=== PATIENT | female | born 1940 | race Caucasian/White ===

== ENCOUNTER → 2016-04-23 | Outpatient (CLI) | payer MEDICARE ==
[~2016-04-23] MED LIST: ALENDRONATE SOD70 MG PO; ATORVASTATIN CA10 MG PO; AZOR 10/40 MG T1 TAB PO; AZOR 5-20 MG T1 EACH PO; CALCIUM 500 + D1 TAB PO; DILANTIN PO; FOSAMAX PO; HCTZ PO; HYDROCHLOROTH12.5 MG PO; KEPPRA500 M1 PO; KEPPRA500 M2 PO; KEPPRA500 MG PO; PROTONIX PO; VITAMIN D250000 UNIT PO
--- NOTE | ~2016-04-23 | MR122 ---
[facility]. [facility] A Service of [facility] RADIOLOGY TEXT RESULTS PATIENT: ANKUSH RODRIGUEZ LOCATION: [facility] : 38 UNIT #: [id number] AGE: [address]: Gabriel Woodall II, MD SEX: F ORDER DR: [id number] [place] [id number] O MR#: [id number] Acc #: [id number] NAME: ANKUSH RODRIGUEZ : 1940 SEX: F STUDY DATE/TIME: 04/23/2016 10:48 UNIT: [facility] ROOM: STUDY DESCRIPTION: MR MRA Head Wo Contrast Attending Physician: Gabriel Woodall II., M.D. Referring Physician: Gabriel Woodall II., M.D. Ordering Physician: Gabriel Woodall II., M.D. Primary Care Physician: José Noriega Jr., M.D. MRI CENTER REPORT This report is preliminary unless electronic signature is present. EXAM MR angiogram of the head without contrast dated 04/23/2016. COMPARISON MRI brain and MRA neck dated 04/23/2016. HISTORY Increased dizziness and unsteady gait followed for less than 3 months. History of seizure activity in the past without any seizure in the last 4 years. FINDINGS Source and 3-D reconstruction MIP images of the [place] was obtained without contrast. Bilateral intracranial internal carotid arteries, anterior cerebral arteries and middle cerebral arteries are within normal limits. Basilar artery, bilateral posterior cerebral arteries, proximal bilateral superior cerebellar arteries are within normal limits. Left vertebral artery is dominant and it feeds the basilar artery. The right vertebral artery significantly decreases in caliber after it enters intradurally. If it has a smooth decrease in caliber throughout its V4 segment. IMPRESSION 1. No aneurysm or AVM. 2. 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 It a congenital appearance. Superimposed stenosis is less likely but it cannot be completely excluded given the patient's age. Dictated by... Priti Castro M.D. [facility] A Service of [facility] RADIOLOGY TEXT RESULTS PATIENT: ANKUSH RODRIGUEZ LOCATION: [facility] : 39 UNIT #: [id number] AGE: [address]: Gabriel Woodall II, MD SEX: F ORDER DR: THIS IS AN ELECTRONICALLY VERIFIED REPORT Priti Castro M.D. at 04/26/2016 5:16 PM CPR/rnr TD: 04/24/2016 02:44 JOB #: [id number] MRI CENTER REPORT
--- NOTE | ~2016-04-23 | MR134 ---
[facility] A Service of [facility] RADIOLOGY TEXT RESULTS PATIENT: ANKUSH RODRIGUEZ LOCATION: [facility] : 39 UNIT #: [id number] AGE: [address]: Gabriel Woodall II, MD SEX: F ORDER DR: [id number] [place] [id number] O MR#: [id number] Acc #: [id number] NAME: ANKUSH RODRIGUEZ : 1940 SEX: F STUDY DATE/TIME: 04/23/2016 10:27 UNIT: [facility] ROOM: STUDY DESCRIPTION: MR MRA Neck Wo Contrast Attending Physician: Gabriel Woodall II., M.D. Referring Physician: Gabriel Woodall II., M.D. Ordering Physician: Gabriel Woodall II., M.D. Primary Care Physician: José Noriega Jr., M.D. MRI CENTER REPORT This report is preliminary unless electronic signature is present. EXAM MRA neck without contrast dated 04/23/2016 COMPARISON MRI brain MRA head dated 04/23/2016. HISTORY Increased dizziness and unsteadiness on feet for less than 3 months. FINDINGS Source and 3-D reconstruction MIP images of the neck arteries were obtained without contrast. Three-vessel aortic arch is seen. Bilateral common, internal and external carotid arteries do not demonstrate any significant abnormality. Left vertebral artery is dominant. Bilateral vertebral arteries demonstrate expected course, caliber and flow. No focal significant stenosis, aneurysm or AVM. IMPRESSION 1. No hemodynamically flow-limiting significant stenosis in bilateral internal carotid arteries per NASCET criteria. 2. No dissection or aneurysm. Dictated by... Priti Castro M.D. THIS IS AN ELECTRONICALLY VERIFIED REPORT Priti Castro M.D. at 04/26/2016 5:16 PM CPR/rnr TD: 04/24/2016 02:21 JOB #: [id number] [facility] A Service of [facility] RADIOLOGY TEXT RESULTS PATIENT: ANKUSH RODRIGUEZ LOCATION: [facility] #: [id number] : 38 UNIT #: [id number] AGE: [address]: Gabriel Woodall II, MD SEX: F ORDER DR: MRI CENTER REPORT
--- NOTE | ~2016-04-23 | MR17 ---
[facility]. [facility] A Service of [facility] RADIOLOGY TEXT RESULTS PATIENT: ANKUSH RODRIGUEZ LOCATION: [facility] : 39 UNIT #: [id number] AGE: [address]: Gabriel Woodall II, MD SEX: F ORDER DR: [id number] [address] [address] [id number] O MR#: [id number] Acc #: [id number] NAME: ANKUSH RODRIGUEZ : 1940 SEX: F STUDY DATE/TIME: 04/23/2016 10:57 UNIT: [facility] ROOM: STUDY DESCRIPTION: MR Brain WWo Contrast Attending Physician: Gabriel Woodall II., M.D. Referring Physician: Gabriel Woodall II., M.D. Ordering Physician: Gabriel Woodall II., M.D. Primary Care Physician: José Noriega Jr., M.D. MRI CENTER REPORT This report is preliminary unless electronic signature is present. EXAM MRI of the brain with and without contrast dated 04/23/2016. COMPARISON MRI brain with and without contrast dated 11/19/2011. HISTORY Increased dizziness, unsteady on feet for less than 3 months. FINDINGS Multisequence multiplanar imaging of the brain was obtained with and without contrast. GFR measured greater than 60. 10 mL of MultiHance was administered intravenously. Status post right frontoparietal scar is seen. Correlate with surgical history, stable. Underlying encephalomalacic changes and gliosis are noted in the right frontoparietal junctional cortex and adjacent white matter. Scattered hyperintense T2-signal lesions are noted in the periventricular white matter and subcortical white matter. Thick slices through the sella with the pituitary gland, pineal region are unremarkable. Mild degenerative changes are noted in the cervical spine. No acute stroke, enhancing mass, hydrocephalus or midline shift. S-shaped nasal septal deviation is seen. Status post bilateral cataract surgery. Imaged orbits and the ocular structures and mastoids are unremarkable. There is minimal bilateral ethmoid sinus mucosal thickening. IMPRESSION 1. Postoperative changes are noted in the right frontoparietal convexity with underlying area of encephalomalacic change and gliosis. No nodular associated enhancing lesion is seen. 2. No acute stroke, enhancing mass, hydrocephalus, midline shift. Small areas of hypointense gradient signal is noted in the frontal parietal region, stable when compared to the previous study suggestive of hemosiderin deposition relating to old surgery and/or calcification. STS. [facility] A Service of [facility] RADIOLOGY TEXT RESULTS PATIENT: ANKUSH RODRIGUEZ LOCATION: [facility] : 39 UNIT #: [id number] AGE: [address]: Gabriel Woodall II, MD SEX: F ORDER DR: Dictated by... Priti Castro M.D. THIS IS AN ELECTRONICALLY VERIFIED REPORT Priti Castro M.D. at 04/26/2016 5:16 PM CPR/rnr TD: 04/24/2016 00:40 JOB #: [id number] MRI CENTER REPORT
[2016-04-23 11:30] LABS: POC - CREATININE 0.75 mg/dL (0.44-1.03); POC - GFR >60.0 mL/min (>60)
== END | disposition home or self-care (01) ==
LOC: SMRI 09:58
PROVIDERS: Psychiatry & Neurology Neurology
DX: R56.9 Unspecified convulsions (principal); Z98.890 Other specified postprocedural states
CPT/HCPCS: 70544; 70547; 70553; 82565; A9581